=== PATIENT | male | born 1965 | race Caucasian/White ===

== ENCOUNTER 2020-06-06 03:03 | Inpatient (IN) ==
[2020-06-06] MEDS ORDERED: HYDROmorphone INJ 0.5 MG/0.5 ML SYR IV STA ×2 (03:38→06:32)
[2020-06-06] MEDS ORDERED: ONDANSETRON INJ 2 MG/ML 2 ML VIAL IV STA ×2 (03:38→05:21)
[2020-06-06 03:45] LABS: Basophils # (auto) 0.01 K/uL (0-0.2); Basophils % (auto) 0.1 %; Eosinophils # (auto) 0.06 K/uL (0-0.5); Eosinophils % (auto) 0.7 %; Hemoglobin 14.9 g/dL (14.0-18.0); Immature Granulocytes # (auto) 0.01 K/uL (0.00-0.02); Immature Granulocytes % (auto) 0.1 %; Lymphocytes # (auto) 2.31 K/uL (1.2-3.4); Lymphocytes % (auto) 28.1 %; Mean Corpuscular Hemoglobin 31.6 pg (25-34); Mean Corpuscular Hgb Conc 35.5 g/dL (32-36); Mean Corpuscular Volume 89.2 fL (80-100); Mean Platelet Volume 10.3 fL (7.4-10.4); Monocytes # (auto) 0.87 K/uL (0.11-0.59); Monocytes % (auto) 10.6 %; Neutrophils # (auto) 4.95 K/uL (1.4-6.5); Neutrophils % (auto) 60.4 %; Platelet Count 204 K/uL (130-400); RDW Coefficient of Variation 12.1 % (11.5-14.5); RDW Standard Deviation 39.2 fL (36.4-46.3); Red Blood Count 4.71 M/uL (4.7-6.1); White Blood Count 8.21 K/uL (4.8-10.8)
[2020-06-06] MEDS ORDERED: SODIUM CHLORIDE 0.9% 1000ML 1,000 ML IV SCH (03:45)
[2020-06-06] MEDS ORDERED: HYDROmorphone INJ 1 MG/ML SYRINGE IV STA ×2 (04:02→05:21)
[2020-06-06 04:13] LABS: Albumin Globulin Ratio 0.9 (0.9-2); Albumin Level 3.5 gm/dl (3.4-5.0); BUN Creatinine Ratio 16.2 (10-20); Bilirubin,Total 0.7 mg/dl (0.2-1); Calcium 8.3 mg/dl (8.5-10.1); Creatinine Clr Calc Pharmacy 115.9 ml/min; Est GFR (African American) 102.7; Est GFR (Non-African American) 88.6; Total Protein 7.5 gm/dl (6.4-8.2)
[2020-06-06] MEDS ORDERED: PROMETHAZINE 12.5 MG/50.5 ML BAG IV STA (05:45)
[2020-06-06] MEDS: SODIUM CHLORIDE 0.9% 1000ML 1,000 ML IV SCH ×3 (05:53→18:24)
--- NOTE | 2020-06-06 06:19 | History & Physical Report ---
Date of Service June 06, 2020 Assessment & Plan (1) Right nephrolithiasis: Chris is a 55-year-old male with a past medical history of glaucoma and no other chronic medical conditions who presents with severe episodic right lower back pain with associated nausea and he was found to have nephrolithiasis on CT scan. Right nephrolithiasis CT abdomen/pelvis demonstrates right stone in renal pelvis of 11 mm and additional right upper pole stone measuring 5 mm with peripelvic stranding. Note stat rad report erroneously states left-sided stone, confirmed on independent image review that stones are right-sided. Patient without symptoms of dysuria preceding symptoms UA pending Empiric coverage with Rocephin 2 g Flomax 0.4 mg Hydromorphone 0.5-1 mg every 3 hours scaled analgesia Tylenol 650 mg every 4 hours as needed Deferred Toradol due to admission recommendation Continue Zofran every 4 hours for nausea, adjunct Phenergan as needed Urology consulted Hemodynamically stable Received 2 L fluid in ED, continue saline 125 cc/h Glaucoma Continue home dorzolamidetimolol, latanoprost ophthalmic drops No other chronic medical conditions. Patient has had past hypertension which resolved following weight loss, if he has stones which show calcium composition would likely benefit from a thiazide. DVT prophylaxis: SCDs, deferred pharmacal prophylaxis centrally periprocedure Diet: N.p.o. Disposition: Medical/surgical CODE STATUS: Full code History of Present Illness Chief Complaint: Right flank pain, back pain Primary Care Provider: Shane lakhani DO Niranjan is a 55-year-old male with a past medical history of glaucoma and no other chronic medical problems who presents with episodic back pain. Chris reports that his symptoms began 2 to 3 days ago with episodic right lower back pain which improved with Tylenol every 4 hours. He reports he was relatively pain-free yesterday until midnight last night when he developed severe 10/10 episodic achy right lower back pain with waves of pain around his flank and abdomen. Movement worsens his pain, does not note remitting factors. He does not have fevers or chills, but notes he has sweating episodes with his pain. He has been retching and had one episode of nonbloody nonbilious vomiting due to pain. He notes the last time he peed at 1:00 he is not sure if there was blood because it was dark, but he did not have any burning or pain and has not noticed any urinary changes. He denies chest pain, chest pressure, shortness of breath. He had Covid several weeks ago, as did his family, they all recovered without complication. He has not had recent fevers or cough. He does not have any personal or family history of kidney stone. He had a past history of hypertension which resolved with weight loss a year ago. Medical history: Reviewed Surgical history: Reviewed Medications: Reviewed Social: Denies tobacco, alcohol, and recreational drug use. He lives at home with his and daughter. No recent sick contacts. Had Covid several weeks ago. CODE STATUS: Full code Family history: Noncontributory, no history of kidney stones Home Medications Home Medications Medication Instructions Recorded Confirmed Type dorzolamide-timolol 1 drp OPB BID 06/06/20 06/06/20 History latanoprost 1 drp OPB HS 06/06/20 06/06/20 History Past Med/Surg History Social History Smoking Status: Never smoker Feels Safe at Home: Yes Review of Systems Review of Systems: All systems reviewed & are unremarkable except as noted in HPI & below Physical Exam Physical Exam: General: A&Ox3. Appears in pain. HEENT: Atraumatic, normocephalic. Pupils equal and reactive to light and accommodation. Visual acuity grossly intact. Hearing grossly intact. Mucous membranes moist. Pulm: CTAB A&P. -wheezes, -rales, -rhonchi. Symmetrical chest rise. No increase work of breathing. No respiratory distress. Cardiac: RRR, -mrg. Radial pulses intact and symmetrical. Abdominal: Nontender, nondistended, soft. No rebound tenderness. BS present. Right CVA tenderness is present. Patient endorses right abdomen as area where his pain radiates when he has a spasm. Extremities: Moving all extremities equally, sensation in fingers and toes grossly intact and symmetrical. No leg swelling. Results & Data Results & Data ([facility]) Vital Signs (Past 12 Hours) Vital Signs Temp Pulse Pulse Resp BP BP Pulse Ox 06/06/20 05:27 96 06/06/20 05:26 89 L 06/06/20 05:18 59 L 12 138/101 H 92 06/06/20 04:30 67 17 117/71 94 06/06/20 03:19 36.5 C 69 20 138/74 97 Supervising Physician Co-Signing Physician Notes Patient seen and examined, chart reviewed, case discussed with Dr. Santoyo and I agree with his assessment and plan as documented above. Briefly, patient iis a 55yo male presenting with large right sided nephrolithiasis, perinephric stranding. On exam patient is afebrile, HD stable, +distress secondary to pain and nausea Skin - no rash HEENT - NC/AT, PERRL, EOMI, MMM, Neck supple Heart - +S1/S2, regular, no m/r/g Lungs - CTA Abd - +BS, soft, NT/ND Labs and images reviewed Assessment/Plan: -admit to medical -pain and nausea control -IVF + Flomax -Urology consultation appreciated -Remainder of plan as above Resident Activity Tracking Resident Involvement: Resident Care Provided Care Provided: Adult Hospital Medicine
[2020-06-06] MEDS ORDERED: KETOROLAC TROMETHAMINE 15 MG/ML VIAL IV ONE (06:20)
[2020-06-06] MEDS ORDERED: ACETAMINOPHEN 325 MG TAB PO PRN ×2 (07:34)
[2020-06-06] MEDS ORDERED: HYDROmorphone INJ 1 MG/ML SYRINGE IV PRN (07:34)
[2020-06-06] MEDS ORDERED: HYDROmorphone INJ 0.5 MG/0.5 ML SYR IV PRN (07:34)
[2020-06-06] MEDS ORDERED: TAMSULOSIN HCL 0.4 MG CAP PO ONE (07:34)
[2020-06-06] MEDS ORDERED: ONDANSETRON INJ 2 MG/ML 2 ML VIAL IV PRN (07:34)
[2020-06-06] MEDS ORDERED: KETOROLAC TROMETHAMINE 15 MG/ML VIAL IV PRN (07:52)
--- NOTE | 2020-06-06 07:56 | Hospitalist Progress Note ---
Date of Service June 06, 2020 Assessment & Plan (1) Right nephrolithiasis: Chris is a 55-year-old male with a past medical history of glaucoma and no other chronic medical conditions who presents with severe episodic right lower back pain with associated nausea and he was found to have nephrolithiasis on CT scan. Right nephrolithiasis CT abdomen/pelvis demonstrates right stone in renal pelvis of 11 mm with pelvic fullness (may be intermittently obstructing) and additional right upper pole stone measuring 5 mm with peripelvic stranding. Patient without symptoms of dysuria preceding symptoms UA pending Empiric coverage with Rocephin 2 g Flomax 0.4 mg Hydromorphone 0.5-1 mg every 3 hours scaled analgesia Tylenol 650 mg every 4 hours as needed Deferred Toradol due to admission recommendation Continue Zofran every 4 hours for nausea, adjunct Phenergan as needed Urology consulted Hemodynamically stable Received 2 L fluid in ED, continue saline 125 cc/h Glaucoma Continue home dorzolamidetimolol, latanoprost ophthalmic drops No other chronic medical conditions. Patient has had past hypertension which resolved following weight loss, if he has stones which show calcium composition would likely benefit from a thiazide. DVT prophylaxis: SCDs, deferred pharmacal prophylaxis centrally periprocedure Diet: N.p.o. Disposition: Medical/surgical CODE STATUS: Full code Admission and Anticipated Discharge Date Admission Date: June 06, 2020 Subjective 55 yo M with hx glaucoma admitted for acute nausea and back pain secondary to nephrolithiasis identified on CT A/P. This morning says pain has improved but continues to be unpredictable. Doesn't know when it will start or stop. Doesn't know of anything that makes it better or worse. Denies any symptoms of dysuria prior to admission. Notes that he did have urinary frequency prior to admission. No personal or family hx of kidney stones. Review of Systems Constitutional: no fever and no chills Respiratory: no cough Cardiovascular: no chest pain Gastrointestinal: + nausea; no vomiting Genitourinary: + urinary frequency and + flank pain; no dysuria and no hematuria Musculoskeletal: + back pain Physical Exam Physical Exam: Constitutional: middle aged male in no apparent distress, sitting comfortably in bed. Eyes: EOMI, pupils equal and reactive bilaterally, no scleral icterus Cardiac: RRR, no murmurs, gallops or rubs. Normal S1, S2 Pulm: CTA BL, no wheezes, rhonchi, crackles or rubs, moving air well throughout both lungs Abd: soft, nontender, distended, normal bowel sounds, no rebound or guarding Back: no CVA tenderness Extremities: 2+ peripheral pulses, no edema Neuro: no focal deficits, moving all 4 limbs, A&Ox3 Results & Data Results & Data ([facility]) Vital Signs (Past 12 Hours) Vital Signs Temp Pulse Pulse Pulse Resp BP BP 06/06/20 07:38 36.4 C L 67 18 150/100 H 06/06/20 07:00 36.5 C 76 16 146/83 H 06/06/20 06:40 61 15 152/109 H 06/06/20 06:01 93 H 19 147/91 H 06/06/20 05:27 06/06/20 05:26 06/06/20 05:18 59 L 12 138/101 H 06/06/20 04:30 67 17 117/71 06/06/20 03:19 36.5 C 69 20 138/74 Pulse Ox 06/06/20 07:38 93 06/06/20 07:00 93 06/06/20 06:40 94 06/06/20 06:01 95 06/06/20 05:27 96 06/06/20 05:26 89 L 06/06/20 05:18 92 06/06/20 04:30 94 06/06/20 03:19 97 Laboratory Results WBC 8.21 K/uL (4.8-10.8) 06/06/20 03:35 RBC 4.71 M/uL (4.7-6.1) 06/06/20 03:35 Hgb 14.9 g/dL (14.0-18.0) 06/06/20 03:35 Hct 42.0 % (42-52) 06/06/20 03:35 MCV 89.2 fL (80-100) 06/06/20 03:35 MCH 31.6 pg (25-34) 06/06/20 03:35 MCHC 35.5 g/dL (32-36) 06/06/20 03:35 RDW Std Deviation 39.2 fL (36.4-46.3) 06/06/20 03:35 RDW Coeff of Kathy 12.1 % (11.5-14.5) 06/06/20 03:35 Plt Count 204 K/uL (130-400) 06/06/20 03:35 MPV 10.3 fL (7.4-10.4) 06/06/20 03:35 Immature Gran % (Auto) 0.1 % 06/06/20 03:35 Neut % (Auto) 60.4 % 06/06/20 03:35 Lymph % (Auto) 28.1 % 06/06/20 03:35 Freestone % (Auto) 10.6 % 06/06/20 03:35 Eos % (Auto) 0.7 % 06/06/20 03:35 Baso % (Auto) 0.1 % 06/06/20 03:35 Neut # (Auto) 4.95 K/uL (1.4-6.5) 06/06/20 03:35 Lymph # (Auto) 2.31 K/uL (1.2-3.4) 06/06/20 03:35 Freestone # (Auto) 0.87 K/uL (0.11-0.59) H 06/06/20 03:35 Eos # (Auto) 0.06 K/uL (0-0.5) 06/06/20 03:35 Baso # (Auto) 0.01 K/uL (0-0.2) 06/06/20 03:35 Immature Gran # (Auto) 0.01 K/uL (0.00-0.02) 06/06/20 03:35 Sodium 139 mmol/L (136-145) 06/06/20 03:35 Potassium mmol/L (3.5-5.1) 06/06/20 03:35 Chloride 111 mmol/L (98-107) H 06/06/20 03:35 Carbon Dioxide 24 mmol/L (21-32) 06/06/20 03:35 Anion Gap 4.0 (3-11) 06/06/20 03:35 BUN 16 mg/dl (7-18) 06/06/20 03:35 Creatinine 0.96 mg/dl (0.6-1.4) 06/06/20 03:35 Est Cr Clr Drug Dosing 115.9 ml/min 06/06/20 03:35 Est GFR ( Amer) 102.7 06/06/20 03:35 Est GFR (Non-Af Amer) 88.6 06/06/20 03:35 BUN/Creatinine Ratio 16.2 (10-20) 06/06/20 03:35 Glucose 148 mg/dl (70-99) H 06/06/20 03:35 Calcium 8.3 mg/dl (8.5-10.1) L 06/06/20 03:35 Total Bilirubin 0.7 mg/dl (0.2-1) 06/06/20 03:35 AST U/L (15-37) 06/06/20 03:35 ALT 34 U/L (12-78) 06/06/20 03:35 Alkaline Phosphatase 75 U/L (45-117) 06/06/20 03:35 Total Protein 7.5 gm/dl (6.4-8.2) 06/06/20 03:35 Albumin 3.5 gm/dl (3.4-5.0) 06/06/20 03:35 Globulin 4.0 gm/dl (2.5-4.0) 06/06/20 03:35 Albumin/Globulin Ratio 0.9 (0.9-2) 06/06/20 03:35 Lipase 121 U/L (73-393) 06/06/20 03:35 COVID-19 Eval Order Covid19 Done at [facility] 06/06/20 09:28
--- NOTE | 2020-06-06 08:07 | CT Scan Report ---
CT SCAN OF THE ABDOMEN AND PELVIS WITHOUT IV CONTRAST CLINICAL HISTORY: Right flank pain. COMPARISON STUDY: No priors. TECHNIQUE: CT scan of the abdomen and pelvis is performed from the lung bases to the proximal femora. Images are reviewed in the axial, sagittal, and coronal planes. IV contrast was not administered for this examination. A dose lowering technique was utilized adhering to the principles of ALARA. CT DOSE: 1712.83 mGy.cm FINDINGS: Lung bases: The heart is normal in size and without pericardial effusion. The lung bases are clear no ting bibasilar scarring/atelectasis. There is a small hiatal hernia. Liver: The unenhanced liver is normal in size, contour, and attenuation. There is no intrahepatic mirna iary ductal dilatation. Gallbladder: Unremarkable. Spleen: Normal in size and attenuation. Pancreas: Unremarkable. Adrenal glands: Unremarkable. Kidneys: The unenhanced kidneys are normal in size. There is a 10 mm calculus in the right renal pelv is seen on image #210. There is mild fullness of the right renal collecting system and right-sided pe rinephric stranding. This calculus may be intermittently obstructing. An additional 5 mm nonobstructi ng calculus is seen in the right upper pole. A 3 mm nonobstructing calculus is seen in the left kidne y. There is no left-sided hydronephrosis. No ureteral stone is seen. There is no evidence of contour deforming renal mass lesion. Abdominal vasculature: The abdominal aorta is normal in course and caliber. Bowel: There is mild to moderate colonic fecal retention. No bowel obstruction is seen. The appendix is well-visualized and normal. Peritoneum: There is no intraperitoneal free air or abdominal ascites. There is a fat-containing umbi lical hernia. Lymphadenopathy: None. Pelvic viscera: The bladder, prostate, and seminal vesicles are normal as visualized. There is eviden ce of previous right inguinal herniorrhaphy. Skeletal structures: No lytic or blastic lesions are seen. There are bilateral pars defects at L5 wit h moderate disc space narrowing and mild anterolisthesis at L5-S1. IMPRESSION: 1. There is a 10 mm calculus identified in the right renal pelvis with mild fullness of the right socorro al collecting system and right-sided perinephric inflammation. This calculus may be intermittently ob structing. Correlate clinically and with urinalysis for evidence of superimposed urinary tract infect ion. 2. Additional nonobstructing calculi are seen bilaterally. 3. Additional findings as above. ACT 112: Negative or not required by law. Electronically signed by: Luis Carlos Kinney M.D. 06/06/2020 8:05 AM
--- NOTE | 2020-06-06 08:45 | Emergency Department Note ---
History of Present Illness General Chief complaint: Kidney Stone Stated complaint: KIDNEY STONE Time Seen by Provider: 06/06/20 03:27 Source: patient and RN notes reviewed Mode of arrival: ambulatory Limitations: no limitations History of Present Illness Provider complaint: Right flank pain Maximum Pain Intensity: 10 This patient is a 55-year-old male who presents emergency department with complaints of right flank pain and nausea. The patient states this was fairly sudden onset while sleeping tonight. He did have an episode of similar pain several days ago that resolved after taking [id number] medications. Patient denies any anything unusual, greasy or spicy this evening. He admits to nausea but denies any vomiting. He denies any fevers or difficulty with a bowel movement. He denies any blood in the urine. Patient denies any history of kidney stones. He denies any history of surgery on the abdomen with the exception of an inguinal hernia repair years ago. Home Medications Home Medications Medication Instructions Recorded Confirmed Type dorzolamide-timolol 1 drp OPB BID 06/06/20 06/06/20 History latanoprost 1 drp OPB HS 06/06/20 06/06/20 History Allergies Allergy/AdvReac Type Severity Reaction Status Date / Time seasonal AdvReac Rash Uncoded 06/06/20 07:58 Past Med/Surg History Medical History COVID-19 Glaucoma Social History Smoking Status: Never smoker Second Hand Exposure: No; Do You Dip or Chew Tobacco: No; Tobacco Cessation Education Requested by Patient: No Hx Alcohol Use: No Hx Substance Use: No Preferred Language: Malaysian Communication Ability: Effective Director Public Service Required: No Beliefs That Will Affect Care: None Current Living Situation: Spouse and Family Other Information That Helps Us Care for You: No Feels Safe at Home: Yes Safety Concerns: Feels Safe At This Time Assistive Devices: None Review of Systems See HPI for pertinent positives & negatives. and A total of 10 systems reviewed and were otherwise negative Physical Exam Vital Signs Vital Signs - 24 hr 06/06/20 03:19 06/06/20 03:30 06/06/20 04:30 Temperature 36.5 C Temperature Source Oral Pulse Rate 69 Pulse Rate [Apical] 67 Respiratory Rate 20 17 Blood Pressure 138/74 Blood Pressure [Right Arm] 117/71 Blood Pressure Mean 95 Blood Pressure Mean [Right Arm] 86 Blood Pressure Position Sitting Pulse Oximetry 97 94 Oxygen Delivery Method Room Air Room Air Oxygen Flow Rate Sepsis Recent Fever Within 48 Hours No Sepsis New/Unexplained Change in Mental Status No Sepsis Action Taken by Nursing No Action Required 06/06/20 05:18 06/06/20 05:26 06/06/20 05:27 Temperature Temperature Source Pulse Rate Pulse Rate [Apical] 59 L Respiratory Rate 12 Blood Pressure Blood Pressure [Right Arm] 138/101 H Blood Pressure Mean Blood Pressure Mean [Right Arm] 113 Blood Pressure Position Pulse Oximetry 92 89 L 96 Oxygen Delivery Method Room Air Room Air Nasal Cannula Oxygen Flow Rate 2 Sepsis Recent Fever Within 48 Hours Sepsis New/Unexplained Change in Mental Status Sepsis Action Taken by Nursing 06/06/20 06:01 Temperature Temperature Source Pulse Rate Pulse Rate [Apical] 93 H Respiratory Rate 19 Blood Pressure Blood Pressure [Right Arm] 147/91 H Blood Pressure Mean Blood Pressure Mean [Right Arm] 109 Blood Pressure Position Pulse Oximetry 95 Oxygen Delivery Method Nasal Cannula Oxygen Flow Rate 2 Sepsis Recent Fever Within 48 Hours Sepsis New/Unexplained Change in Mental Status Sepsis Action Taken by Nursing Vital signs reviewed. General: Well-appearing 55-year-old male, in significant discomfort HEENT: No scleral icterus, PERRLA, neck supple. Atraumatic. Cardiovascular: Regular rate and rhythm, no extra sounds. Pulmonary: Clear to auscultation bilaterally, normal work of breathing. Abdomen: Soft, mild right upper quadrant tenderness, no rebound, no guarding, nondistended, positive bowel sounds. Musculoskeletal: Atraumatic, no peripheral edema. No CVA tenderness. Neurologic: Patient awake alert and oriented x 3 Skin: Warm, dry, no rash Course Administered Medications Acetaminophen (Acetaminophen 500 Mg Tab) 1,000 mg PO Q8H JACOBO Stop: 07/06/20 08:29 Last Admin: 06/07/20 08:40 Dose: 1,000 mg Documented by: [id number] Admin: 06/07/20 00:38 Dose: 1,000 mg Documented by: [id number] Admin: 06/06/20 16:46 Dose: 1,000 mg Documented by: [id number] Admin: 06/06/20 10:06 Dose: 1,000 mg Documented by: [id number] Dorzolamide/Timolol (Dorzolamide/Timolol 22.3/6.8mg/Ml 10 Ml Btl) 1 drops OPB BID JACOBO Stop: 07/06/20 08:59 Last Admin: 06/07/20 08:41 Dose: 1 drops Documented by: [id number] Admin: 06/06/20 22:18 Dose: 1 drops Documented by: [id number] Admin: 06/06/20 10:07 Dose: 1 drops Documented by: [id number] Ceftriaxone Sodium 2,000 mg/ (Dextrose) 50 mls @ 100 mls/hr IV Q24H JACOBO; Protocol Stop: 06/08/20 08:29 Last Infusion: 06/07/20 09:18 Dose: 0 mls/hr Documented by: [id number] Admin: 06/07/20 08:37 Dose: 100 mls/hr Documented by: [id number] Infusion: 06/06/20 10:41 Dose: 0 mls/hr Documented by: [id number] Admin: 06/06/20 10:09 Dose: 100 mls/hr Documented by: [id number] Latanoprost (Latanoprost 0.005% Op Soln 2.5 Ml Btl) 1 drops OPB HS JACOBO Stop: 07/06/20 20:59 Last Admin: 06/06/20 22:18 Dose: 1 drops Documented by: [id number] Tamsulosin HCl (Tamsulosin Hcl 0.4 Mg Cap) 0.4 mg PO QAM JACOBO Stop: 07/07/20 08:59 Last Admin: 06/07/20 09:19 Dose: 0.4 mg Documented by: [id number] Discontinued Medications Hydromorphone HCl (Hydromorphone Inj 0.5 Mg/0.5 Ml Syr) 0.5 mg IV NOW STA Stop: 06/06/20 03:39 Last Admin: 06/06/20 03:45 Dose: 0.5 mg Documented by: [id number] Hydromorphone HCl (Hydromorphone Inj 1 Mg/Ml Syringe) 1 mg IV NOW STA Stop: 06/06/20 04:03 Last Admin: 06/06/20 04:08 Dose: 1 mg Documented by: [id number] Hydromorphone HCl (Hydromorphone Inj 1 Mg/Ml Syringe) 1 mg IV NOW STA Stop: 06/06/20 05:22 Last Admin: 06/06/20 05:23 Dose: 1 mg Documented by: [id number] Hydromorphone HCl (Hydromorphone Inj 0.5 Mg/0.5 Ml Syr) 0.5 mg IV NOW STA Stop: 06/06/20 06:33 Last Admin: 06/06/20 06:34 Dose: 0.5 mg Documented by: [id number] Sodium Chloride (Nss 1000ml) 1,000 mls @ 999 mls/hr IV .Q1H1M JACOBO Stop: 06/06/20 04:45 Last Infusion: 06/06/20 04:47 Dose: 0 mls/hr Documented by: [id number] Admin: 06/06/20 03:46 Dose: 999 mls/hr Documented by: [id number] Promethazine HCl (Phenergan) 12.5 mg in 50.5 mls @ 202 mls/hr IV NOW STA Stop: 06/06/20 05:59 Last Infusion: 06/06/20 06:11 Dose: 0 mls/hr Documented by: [id number] Admin: 06/06/20 05:53 Dose: 202 mls/hr Documented by: [id number] Sodium Chloride (Nss 1000ml) 1,000 mls @ 125 mls/hr IV .Q8H JACOBO Stop: 07/06/20 05:59 Last Infusion: 06/07/20 08:46 Dose: 0 mls/hr Documented by: [id number] Infusion: 06/07/20 06:26 Dose: 125 mls/hr Documented by: [id number] Admin: 06/07/20 01:55 Dose: 125 mls/hr Documented by: [id number] Infusion: 06/07/20 01:55 Dose: 125 mls/hr Documented by: [id number] Infusion: 06/06/20 22:18 Dose: 125 mls/hr Documented by: [id number] Admin: 06/06/20 18:24 Dose: 125 mls/hr Documented by: [id number] Infusion: 06/06/20 18:09 Dose: 125 mls/hr Documented by: [id number] Admin: 06/06/20 10:09 Dose: 125 mls/hr Documented by: [id number] Infusion: 06/06/20 10:05 Dose: 0 mls/hr Documented by: [id number] Admin: 06/06/20 05:53 Dose: 125 mls/hr Documented by: [id number] Ketorolac Tromethamine (Ketorolac Tromethamine 15 Mg/Ml Vial) 15 mg IV NOW ONE Stop: 06/06/20 06:21 Last Admin: 06/06/20 08:07 Dose: 15 mg Documented by: [id number] Ondansetron HCl (Ondansetron Inj 2 Mg/Ml 2 Ml Vial) 4 mg IV NOW STA Stop: 06/06/20 03:39 Last Admin: 06/06/20 03:45 Dose: 4 mg Documented by: [id number] Ondansetron HCl (Ondansetron Inj 2 Mg/Ml 2 Ml Vial) 4 mg IV NOW STA Stop: 06/06/20 05:22 Last Admin: 06/06/20 05:23 Dose: 4 mg Documented by: [id number] Tamsulosin HCl (Tamsulosin Hcl 0.4 Mg Cap) 0.4 mg PO NOW ONE Stop: 06/06/20 07:35 Last Admin: 06/06/20 10:06 Dose: 0.4 mg Documented by: [id number] Medical Decision Making Differential Diagnosis Renal colic, UTI, appendicitis, diverticulitis, mesenteric ischemia, aortic pathology, infections, inflammatory bowel disease, PUD, biliary pathology, as well as other pathologies. Medical Records Attestation: I reviewed the patient's medical records. Home Medications Current Medication List: was personally reviewed by me Laboratory Data Attestation: I reviewed the patient's lab results. Result diagrams: 06/07/20 04:37 06/07/20 04:37 Lab Results 06/06/20 06/06/20 Range/Units 03:35 03:35 WBC 8.21 (4.8-10.8) K/uL RBC 4.71 (4.7-6.1) M/uL Hgb 14.9 (14.0-18.0) g/dL Hct 42.0 (42-52) % MCV 89.2 (80-100) fL MCH 31.6 (25-34) pg MCHC 35.5 (32-36) g/dL RDW Std Deviation 39.2 (36.4-46.3) fL RDW Coeff of Kathy 12.1 (11.5-14.5) % Plt Count 204 (130-400) K/uL MPV 10.3 (7.4-10.4) fL Immature Gran % (Auto) 0.1 % Neut % (Auto) 60.4 % Lymph % (Auto) 28.1 % Waller % (Auto) 10.6 % Eos % (Auto) 0.7 % Baso % (Auto) 0.1 % Neut # (Auto) 4.95 (1.4-6.5) K/uL Lymph # (Auto) 2.31 (1.2-3.4) K/uL Waller # (Auto) 0.87 H (0.11-0.59) K/uL Eos # (Auto) 0.06 (0-0.5) K/uL Baso # (Auto) 0.01 (0-0.2) K/uL Immature Gran # (Auto) 0.01 (0.00-0.02) K/uL Sodium 139 (136-145) mmol/L Potassium (3.5-5.1) mmol/L Chloride 111 H (98-107) mmol/L Carbon Dioxide 24 (21-32) mmol/L Anion Gap 4.0 (3-11) BUN 16 (7-18) mg/dl Creatinine 0.96 (0.6-1.4) mg/dl Est Cr Clr Drug Dosing 115.9 ml/min Est GFR ( Amer) 102.7 Est GFR (Non-Af Amer) 88.6 BUN/Creatinine Ratio 16.2 (10-20) Glucose 148 H (70-99) mg/dl Calcium 8.3 L (8.5-10.1) mg/dl Total Bilirubin 0.7 (0.2-1) mg/dl AST (15-37) U/L ALT 34 (12-78) U/L Alkaline Phosphatase 75 (45-117) U/L Total Protein 7.5 (6.4-8.2) gm/dl Albumin 3.5 (3.4-5.0) gm/dl Globulin 4.0 (2.5-4.0) gm/dl Albumin/Globulin Ratio 0.9 (0.9-2) Lipase 121 (73-393) U/L Imaging Data Radiologist's Impression: CT SCAN OF THE ABDOMEN AND PELVIS WITHOUT IV CONTRAST CLINICAL HISTORY: Right flank pain. COMPARISON STUDY: No priors. TECHNIQUE: CT scan of the abdomen and pelvis is performed from the lung bases to the proximal femora. Images are reviewed in the axial, sagittal, and coronal planes. IV contrast was not administered for this examination. A dose lowering technique was utilized adhering to the principles of ALARA. CT DOSE: 1712.83 mGy.cm FINDINGS: Lung bases: The heart is normal in size and without pericardial effusion. The lung bases are clear noting bibasilar scarring/atelectasis. There is a small hiatal hernia. Liver: The unenhanced liver is normal in size, contour, and attenuation. There is no intrahepatic biliary ductal dilatation. Gallbladder: Unremarkable. Spleen: Normal in size and attenuation. Pancreas: Unremarkable. Adrenal glands: Unremarkable. Kidneys: The unenhanced kidneys are normal in size. There is a 10 mm calculus in the right renal pelvis seen on image #210. There is mild fullness of the right renal collecting system and right-sided perinephric stranding. This calculus may be intermittently obstructing. An additional 5 mm nonobstructing calculus is s een in the right upper pole. A 3 mm nonobstructing calculus is seen in the left kidney. There is no left-sided hydronephrosis. No ureteral stone is seen. There is no evidence of contour deforming renal mass lesion. Abdominal vasculature: The abdominal aorta is normal in course and caliber. Bowel: There is mild to moderate colonic fecal retention. No bowel obstruction is seen. The appendix is well-visualized and normal. Peritoneum: There is no intraperitoneal free air or abdominal ascites. There is a fat-containing umbilical hernia. Lymphadenopathy: None. Pelvic viscera: The bladder, prostate, and seminal vesicles are normal as visualized. There is evidence of previous right inguinal herniorrhaphy. Skeletal structures: No lytic or blastic lesions are seen. There are bilateral pars defects at L5 with moderate disc space narrowing and mild anterolisthesis at L5-S1. IMPRESSION: 1. There is a 10 mm calculus identified in the right renal pelvis with mild fullness of the right renal collecting system and right-sided perinephric inflammation. This calculus may be intermittently obstructing. Correlate clinically and with urinalysis for evidence of superimposed urinary tract infect ion. 2. Additional nonobstructing calculi are seen bilaterally. 3. Additional findings as above. ACT 112: Negative or not required by law. Electronically signed by: Luis Carlos Kinney M.D. 06/06/2020 8:05 AM Dictated: 06/06/20 0759 Transcribed: 06/06/20758 ECG Data Attestation: I personally reviewed and interpreted this ECG as follows: Indication: + abdominal pain Rate (beats per minute): 62 Rhythm: + normal sinus ECG Intervals/blocks: + Normal QT-c ECG Warner: + Normal ECG ST segments: + Normal ST segments ECG Findings: no PACs and no PVCs Blood Pressure Blood Pressure Findings: Elevated blood pressure Blood Pressure Disposition: elevated BP felt to be situational MDM Narrative This pt was evaluated and appears to be in significant discomfort. IV access was obtained and lab work was drawn. An order for cardiac monitoring was placed and the pt was noted to be in a NSR at 69 bpm. Pt was hydrated with NSS. He was medicated with IV dilaudid, zofran for pain. He required several doses of dilaudid for increased pain and zofran for nausea. Pt was then given IV phenergan for nausea. IVF were continued. Pt was unable to urinate. CT imaginf reveals a 11 mm and 5 mm stone in R renal pelvis. [place] [facility] [place] who will evaluate for further management. Pt is aware and agrees. Impression & Plan Right nephrolithiasis, Colic, ureteral Discharge Plan Visit Data Chief Complaint: Kidney Stone Stated Complaint: KIDNEY STONE ED Provider: Marianne Hancock Discharge Problem: Right nephrolithiasis, Colic, ureteral Patient Disposition: Admitted As Inpatient Discharge Instructions Interventions: ED Discharge Assessment Last Done: 06/06/20 06:40
--- NOTE | 2020-06-06 09:33 | Urology Consultation ---
Date of Consultation June 06, 2020 Assessment & Plan (1) Right nephrolithiasis: 55 yo M admitted for right flank pain secondary to 11 mm calculus in right renal pelvis. - Afebrile, nontoxic, creatinine and WBC WNL - Stone in right renal pelvis likely intermittently obstructing - Discussed treatment options with patient and his . Patient would like to proceed with stent placement today. - Keep NPO - Strain urine - Findings reviewed with Dr. Pineda. Given his right flank pain in the context of an obstructing 11 mm right renal stone, will proceed with OR for cystoscopy and Right stent placement. Risks and benefits to be reviewed with patient by Dr. Pineda. OR notified. Preoperative EKG on chart. COVID testing completed. Will cover with IV Ceftriaxone preoperatively. Update - COVID test returned positive. Will cancel surgery today until further evaluation. Patient is stable and no emergent need for intervention today. Continue with symptom control. Please consult our service urgently if patient develops fever >101F, intractable pain or nausea, as this may necessitate urgent surgical intervention. Thank you for the consultation and we will continue to monitor closely with primary service. History of Present Illness Reason for Consultation: Right renal calculus Attending Physician: Riogberto Salvador MD History of Present Illness 55 yo M admitted for right flank pain secondary to 11 mm right renal stone. PMHx of glaucoma and hypertension. Patient presented to [facility] on 06/06/2020 with right flank pain and nausea. Lab work on admission showed no leukocytosis, creatinine 0.96. UA and urine culture not collected on admission. CT A/P demonstrated a 10 mm calculus in the right renal pelvis with mild fullness of the right renal collecting system and right- sided perinephric inflammation. Additional nonobstructing calculi are seen bilaterally. He was treated with IV fluids and Rocephin in the ED. He was admitted for pain management and further evaluation. Patient seen and examined at bedside. present at bedside. Pt is feeling some improvement since admission. Continues to have right flank/back pain, relief with pain medication. Mild nausea, no recent vomiting. No fever or chills. No dysuria or hematuria. Voiding without difficulty. He wishes to pursue intervention today. Chart review: no additional lab work since admission. UA collected - 5-10 WBCs, 10-30 RBCs, 20-30 Epithelials, negative bacteria and negative nitrites. No urine culture pending. This is his first stone. No known family history of stones. No additional concerns today. Allergies Allergy/AdvReac Type Severity Reaction Status Date / Time seasonal AdvReac Rash Uncoded 06/06/20 07:58 Home Medications Home Medications Medication Instructions Recorded Confirmed Type dorzolamide-timolol 1 drp OPB BID 06/06/20 06/06/20 History latanoprost 1 drp OPB HS 06/06/20 06/06/20 History Patient History Medical History COVID-19 Glaucoma Social History Smoking Status: Never smoker Second Hand Exposure: No; Do You Dip or Chew Tobacco: No; Tobacco Cessation Education Requested by Patient: No Hx Alcohol Use: No Hx Substance Use: No Preferred Language: Burmese Communication Ability: Effective Rn Pool Required: No Beliefs That Will Affect Care: None Current Living Situation: Spouse and Family Other Information That Helps Us Care for You: No Feels Safe at Home: Yes Safety Concerns: Feels Safe At This Time Assistive Devices: Glasses Review of Systems Constitutional: as per Subjective / HPI Gastrointestinal: as per Subjective / HPI Genitourinary: + as per Subjective / HPI Physical Exam Constitutional: well developed and well nourished; no acute distress and not ill appearing Eyes: no scleral abnormality Respiratory: normal respiratory effort and able to speak in complete sentences; no respiratory distress and no labored breathing Cardiovascular: Extremities: no pedal edema Gastrointestinal (Abdomen): Inspection/Auscultation: abdomen normal to inspection; abdomen not distended Percussion/Palpation: abdomen soft; abdomen nontender and no guarding Musculoskeletal: Head/Neck/Chest: normocephalic and head atraumatic Extremities: extremities normal to inspection Skin: no rashes, warm and dry Neurologic: moves all extremities and awake Psychiatric: Orientation: alert and oriented x 3 Genitourinary: no CVA tenderness Results & Data ([facility]) Vital Signs (Past 12 Hours) Vital Signs Temp Pulse Pulse Pulse Resp BP BP 06/06/20 07:38 36.4 C L 67 18 150/100 H 06/06/20 07:00 36.5 C 76 16 146/83 H 06/06/20 06:40 61 15 152/109 H 06/06/20 06:01 93 H 19 147/91 H 06/06/20 05:27 06/06/20 05:26 06/06/20 05:18 59 L 12 138/101 H 06/06/20 04:30 67 17 117/71 06/06/20 03:19 36.5 C 69 20 138/74 Pulse Ox 06/06/20 07:38 93 06/06/20 07:00 93 06/06/20 06:40 94 06/06/20 06:01 95 06/06/20 05:27 96 06/06/20 05:26 89 L 06/06/20 05:18 92 06/06/20 04:30 94 06/06/20 03:19 97 PG Care Time/CCT Total # of Minutes Spent Total Time Spent with Patient: Total time spent is greater than 50% in coordination of care (as documented) at patient's floor/unit and/or counseling patient: Coding Level of Care Code 03098 Inpt Consult Level 3 Diagnoses Right nephrolithiasis N20.0
[2020-06-06] MEDS: ACETAMINOPHEN 500 MG TAB PO SCH ×2 (10:06→16:46)
[2020-06-06] MEDS: DORZOLAMIDE/TIMOLOL 22.3/6.8MG/ML 10 ML BTL OPB SCH ×2 (10:07→22:18)
[2020-06-06] MEDS: cefTRIAXone SODIUM 2,000 MG in DEXTROSE 5% 50 ML IV SCH (10:09)
[2020-06-06 14:26] LABS: Appearance Urine Clear (Clear); Bacteria Urine Automated Negative (Negative); Bilirubin Urine Negative (Negative); Blood Urine 2+ (Negative); Color Urine Dark Yellow; Epithelial Cell Urine Auto 20-30 /lpf (0-5); Glucose Urine UA Negative (Negative); Ketones Urine Negative (Negative); Leukocyte Esterase Urine Negative (Negative); Nitrite Urine Negative (Negative); Protein Urine Negative (Negative); Specific Gravity Urine 1.025 (1.000-1.030); Urobilinogen Urine Negative (Negative)
--- NOTE | 2020-06-06 14:50 | Hospitalist Progress Note ---
Date of Service June 06, 2020 Assessment & Plan (1) COVID-19: Patient states he was diagnosed May 16 he spent 2 weeks on isolation he was symptomatic his symptoms have resolved. His daughter and are also positive. He believes that his daughter brought Covid into the home she was babysitting for child to eventually proved to have Covid positive. 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 Jan Alberto regarding his and possibly be an OR case on 06/07 appropriate PPE and precautions will be taken (2) Right nephrolithiasis: Chris is a 55-year-old male with a past medical history of glaucoma and no other chronic medical conditions who presents with severe episodic right lowe r back pain with associated nausea and he was found to have nephrolithiasis on CT scan. Right nephrolithiasis CT abdomen/pelvis demonstrates right stone in renal pelvis of 11 mm with pelvic fullness (may be intermittently obstructing) and additional right upper pole stone measuring 5 mm with peripelvic stranding. Patient without symptoms of dysuria preceding symptoms UA pending Empiric coverage with Rocephin 2 g Flomax 0.4 mg Hydromorphone 0.5-1 mg every 3 hours scaled analgesia Tylenol 650 mg every 4 hours as needed Deferred Toradol due to admission recommendation Continue Zofran every 4 hours for nausea, adjunct Phenergan as needed Urology consulted Hemodynamically stable Received 2 L fluid in ED, continue saline 125 cc/h Glaucoma Continue home dorzolamidetimolol, latanoprost ophthalmic drops No other chronic medical conditions. Patient has had past hypertension which resolved following weight loss, if he has stones which show calcium composition would likely benefit from a thiazide. DVT prophylaxis: SCDs, deferred pharmacal prophylaxis centrally periprocedure Diet: N.p.o. Disposition: Medical/surgical CODE STATUS: Full code (3) Glaucoma: Admission and Anticipated Discharge Date Admission Date: June 06, 2020 Subjective pt states his pain was unbearable this morning now it is more controlled Results & Data Results & Data ([facility]) Vital Signs (Past 12 Hours) Vital Signs Temp Pulse Pulse Pulse Resp BP BP 06/06/20 10:13 98.2 F 70 18 134/84 06/06/20 07:38 97.5 F L 67 18 150/100 H 06/06/20 07:00 97.7 F 76 16 146/83 H 06/06/20 06:40 61 15 152/109 H 06/06/20 06:01 93 H 19 147/91 H 06/06/20 05:27 06/06/20 05:26 06/06/20 05:18 59 L 12 138/101 H 06/06/20 04:30 67 17 117/71 06/06/20 03:19 97.7 F 69 20 138/74 Pulse Ox 06/06/20 10:13 95 06/06/20 07:38 93 06/06/20 07:00 93 06/06/20 06:40 94 06/06/20 06:01 95 06/06/20 05:27 96 06/06/20 05:26 89 L 06/06/20 05:18 92 06/06/20 04:30 94 06/06/20 03:19 97 PG Care Time/CCT Total # of Minutes Spent Total Time Spent with Patient: Total time spent is greater than 50% in coordination of care (as documented) at patient's floor/unit and/or counseling patient: Coding Level of Care Code None Diagnoses COVID-19 U07.1 Right nephrolithiasis N20.0 Glaucoma H40.9
--- NOTE | 2020-06-06 16:42 | Electrocardiogram Report ---
Test Reason : Blood Pressure : / mmHG Vent. Rate : 062 BPM Atrial Rate : 062 BPM P-R Int : 150 ms QRS Dur : 098 ms QT Int : 400 ms P-R-T Axes : 046 079 067 degrees QTc Int : 406 ms Normal sinus rhythm Normal ECG No previous ECGs available Confirmed by Gallito Zamarripa ([id number]) on 06/06/2020 4:41:43 PM Referred By: REFERRED SELF Confirmed By:Yadiel Zamarripa
[2020-06-06] MEDS ORDERED: LATANOPROST 0.005% OP SOLN 2.5 ML BTL OPB SCH (21:00)
[2020-06-07] MEDS: ACETAMINOPHEN 500 MG TAB PO SCH ×2 (00:38→08:40)
[2020-06-07] MEDS: SODIUM CHLORIDE 0.9% 1000ML 1,000 ML IV SCH (01:55)
[2020-06-07 05:18] LABS: Basophils # (auto) 0.01 K/uL (0-0.2); Basophils % (auto) 0.1 %; Eosinophils # (auto) 0.05 K/uL (0-0.5); Eosinophils % (auto) 0.7 %; Hematocrit (blood only) 37.7 % (42-52); Hemoglobin 12.7 g/dL (14.0-18.0); Immature Granulocytes # (auto) 0.01 K/uL (0.00-0.02); Immature Granulocytes % (auto) 0.1 %; Lymphocytes # (auto) 2.32 K/uL (1.2-3.4); Mean Corpuscular Hemoglobin 30.8 pg (25-34); Mean Corpuscular Hgb Conc 33.7 g/dL (32-36); Mean Corpuscular Volume 91.5 fL (80-100); Mean Platelet Volume 10.3 fL (7.4-10.4); Monocytes # (auto) 0.81 K/uL (0.11-0.59); Monocytes % (auto) 11.5 %; Neutrophils # (auto) 3.82 K/uL (1.4-6.5); Neutrophils % (auto) 54.6 %; Platelet Count 175 K/uL (130-400); RDW Coefficient of Variation 12.3 % (11.5-14.5); RDW Standard Deviation 41.6 fL (36.4-46.3); Red Blood Count 4.12 M/uL (4.7-6.1); White Blood Count 7.02 K/uL (4.8-10.8)
[2020-06-07 05:59] LABS: BUN Creatinine Ratio 18.2 (10-20); Calcium 7.5 mg/dl (8.5-10.1); Creatinine Clr Calc Pharmacy 114.7 ml/min; Est GFR (African American) 101.4; Est GFR (Non-African American) 87.5; Potassium 4.3 mmol/L (3.5-5.1)
--- NOTE | 2020-06-07 07:05 | Hospitalist Progress Note ---
Date of Service June 07, 2020 Assessment & Plan (1) COVID-19: Patient states he was diagnosed May 16 he spent 2 weeks on isolation he was symptomatic his symptoms have resolved. His daughter and are also positive. He believes that his daughter brought Covid into the home she was babysitting for child to eventually proved to have Covid positive. 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 Jan Alberto regarding his and possibly be an OR case on 06/07 appropriate PPE and precautions will be taken (2) Right nephrolithiasis: Chris is a 55-year-old male with a past medical history of glaucoma and no other chronic medical conditions who presents with severe episodic right lowe r back pain with associated nausea and he was found to have nephrolithiasis on CT scan. Right nephrolithiasis CT abdomen/pelvis demonstrates right stone in renal pelvis of 11 mm with pelvic fullness (may be intermittently obstructing) and additional right upper pole stone measuring 5 mm with peripelvic stranding. Patient without symptoms of dysuria preceding symptoms UA pending [employer] coverage with Rocephin 2 g Flomax 0.4 mg Hydromorphone 0.5-1 mg every 3 hours scaled analgesia Tylenol 650 mg every 4 hours as needed Deferred Toradol due to admission recommendation Continue Zofran every 4 hours for nausea, adjunct Phenergan as needed Urology consulted Hemodynamically stable Received 2 L fluid in ED, continue saline 125 cc/h Glaucoma Continue home dorzolamidetimolol, latanoprost ophthalmic drops No other chronic medical conditions. Patient has had past hypertension which resolved following weight loss, if he has stones which show calcium composition would likely benefit from a thiazide. DVT prophylaxis: SCDs, deferred pharmacal prophylaxis centrally periprocedure Diet: N.p.o. Disposition: Medical/surgical CODE STATUS: Full code (3) Glaucoma: Admission and Anticipated Discharge Date Admission Date: June 06, 2020 Results & Data Results & Data ([facility]) Vital Signs (Past 12 Hours) Vital Signs Temp Pulse Resp BP Pulse Ox 06/07/20 00:35 97.9 F 74 16 117/68 95 PG Care Time/CCT Total # of Minutes Spent Total Time Spent with Patient: Total time spent is greater than 50% in coordination of care (as documented) at patient's floor/unit and/or counseling patient: Coding Diagnoses COVID-19 U07.1 Right nephrolithiasis N20.0 Glaucoma H40.9
[2020-06-07] MEDS: cefTRIAXone SODIUM 2,000 MG in DEXTROSE 5% 50 ML IV SCH (08:37)
[2020-06-07] MEDS: DORZOLAMIDE/TIMOLOL 22.3/6.8MG/ML 10 ML BTL OPB SCH (08:41)
[2020-06-07] MEDS ORDERED: TAMSULOSIN HCL 0.4 MG CAP PO SCH (09:00)
--- NOTE | 2020-06-07 10:38 | Urology Progress Note ---
Date of Service June 07, 2020 Assessment & Plan (1) Right nephrolithiasis: Attending note: 06/07/2020 at approximately 10 AM Spoke at length with patient over phone in order to try to coordinate care and answer questions more immediately wall I was not physically in the hospital taking care of clinical duties at a another facility. Multiple issues have arisen in attempt to come up with a clinical plan and management the patient. In light of patient's recent issues related to the COVID-19 virus as well as his continued positive test, increased precautions would be necessary for any intervention. Patient is currently afebrile. He is not having considerable issues related to nausea or vomiting or inability to tolerate diet. He has been ambulating and active and pain medications have been successful in controlling his pain. Today he is needing minimal pain medication. He has not had any considerable episodes of severe pain. His kidney function has remained within normal limits. Patient has somewhat been frustrated and is interested in moving forward with some sort of plan. Discussed stents at length with patient. Discussed options related to this. Patient is not having fever or considerable obstruction leading to renal injury which would be the main indications for stent placement. He is only having intermittent pain and this is been tolerated and able to be controlled with medication. Discussed side effects of stent placement including urgency frequ ency, pelvic discomfort and pain, irritation, bleeding, and other issues. Discussed may benefit which would be control of severe intermittent episodes of pain. Also discussed at length concerns related to anesthesia and surgical risk and patient in light of his recent Covid illness. Discussed increased risk of respiratory and other concerns. Discussed concerns related to intubation and anesthetic with possibility of respiratory failure and other issues. Considering these increased risk, the concerns related to the patient's status as far as contagion, and possible benefit which would be control of intermittent discomfort at this point, recommend continuing with supportive care, maximum hydration, and additional time with plans for elective management of stone in the next 1 to 2 weeks. Patient would likely be a good candidate for lithotripsy or ureteroscopy. Can coordinate this through our office with plans for optimal social distancing and minimal need for interaction. Recommend sending patient with combination of medications as as needed medications for management of issues. Would recommend opiate medication as as needed with plans for ketorolac either scheduled or as needed, tamsulosin daily, and finally recommendation to maintain good hydration as well as plans for immediate return or alerting of the on-call service if patient develops fevers chills or considerable exacerbation of issues. 55 yo M admitted for right flank pain secondary to 11 mm calculus in right renal pelvis. - Afebrile, nontoxic, creatinine and WBC WNL - Stone in right renal pelvis likely intermittently obstructing - Discussed treatment options with patient and his . Patient would like to proceed with stent placement today. - Keep NPO - Strain urine - Findings reviewed with Dr. Pineda. Given his right flank pain in the context of an obstructing 11 mm right renal stone, will proceed with OR for cystoscopy and Right stent placement. Risks and benefits to be reviewed with patient by Dr. Pineda. OR notified. Preoperative EKG on chart. COVID testing completed. Will cover with IV Ceftriaxone preoperatively. Update - COVID test returned positive. Will cancel surgery today until further evaluation. Patient is stable and no emergent need for intervention today. Continue with symptom control. Please consult our service urgently if patient develops fever >101F, intractable pain or nausea, as this may necessitate urgent surgical intervention. Thank you for the consultation and we will continue to monitor closely with primary service. Admission and Anticipated Discharge Date Admission Date: June 06, 2020 Subjective Phone call with patient in order to coordinate care. Patient is has not had a considerable episode of pain per him. He is mainly frustrated and is anxious to find a plan moving forward. No fevers or chills. No nausea or vomiting. Has been n.p.o. but had been previously tolerating diet. Has not had considerable or worsening respiratory issues or other bother. No considerable ill feelings. Most recent episode of significant or severe pain was on admission which was treated with IV medications which improved the issues drastically. Issue started approximately 3 to 4 days ago with possible previous episodes that were more minor. Has not had considerable stone issues in the past. No significant family history. Review of Systems Review of Systems: All systems reviewed & are unremarkable except as noted in HPI & below Physical Exam Physical Exam: General: Alert in no acute distress. Normal affect Respiratory: Nonlabored. No conversational dyspnea. Results & Data ([facility]) Vital Signs (Past 12 Hours) Vital Signs Temp Pulse Resp BP BP Pulse Ox 06/07/20 07:50 36.6 C 71 16 138/83 97 06/07/20 00:35 36.6 C 74 16 117/68 95 PG Care Time/CCT Total # of Minutes Spent Total Time Spent with Patient: Total time spent is greater than 50% in coordination of care (as documented) at patient's floor/unit and/or counseling patient: Coding Level of Care Code 84321 Subseq Hosp Care Lvl 3 Diagnoses Right nephrolithiasis N20.0
--- NOTE | 2020-06-07 18:10 | Discharge Summary ---
Date of Service June 07, 2020 Admission HPI Per Admitting Provider Niranjan is a 55-year-old male with a past medical history of glaucoma and no other chronic medical problems who presents with episodic back pain. Chris reports that his symptoms began 2 to 3 days ago with episodic right lower back pain which improved with Tylenol every 4 hours. He reports he was relatively pain-free yesterday until midnight last night when he developed severe 10/10 episodic achy right lower back pain with waves of pain around his flank and abdomen. Movement worsens his pain, does not note remitting factors. He does not have fevers or chills, but notes he has sweating episodes with his pain. He has been retching and had one episode of nonbloody nonbilious vomiting due to pain. He notes the last time he peed at 1:00 he is not sure if there was blood because it was dark, but he did not have any burning or pain and has not noticed any urinary changes. He denies chest pain, chest pressure, shortness of breath. He had Covid several weeks ago, as did his family, they all recovered without complication. He has not had recent fevers or cough. He does not have any personal or family history of kidney stone. He had a past history of hypertension which resolved with weight loss a year ago. Medical history: Reviewed Surgical history: Reviewed Medications: Reviewed Social: Denies tobacco, alcohol, and recreational drug use. He lives at home with his and daughter. No recent sick contacts. Had Covid several weeks ago. CODE STATUS: Full code Family history: Noncontributory, no history of kidney stones Principal Diagnosis Right renal pelvis kidney stone Possible pyelonephritis Persistent COVID-19 test positive Discharge Exam The patient appeared well Vital signs as documented. Neurologic exam is alert and oriented, no focal loss of strength or sensation Skin is without bruises or rashes Psychologically is without concerns for anxiety or depression. Discharge Data Allergies Allergy/AdvReac Type Severity Reaction Status Date / Time seasonal AdvReac Rash Uncoded 06/06/20 07:58 Consultations 06/06/20 07:34 Consult Urology Routine Procedures Performed Operation Date: 06/06/20 14:45 <No data on this case meets the specified criteria> Ordered Studies 06/06/20 03:38 CT abd pelvis wo con Urgent Hospital Course (1) COVID-19: Patient states he was diagnosed May 16 he spent 2 weeks on isolation he was symptomatic his symptoms have resolved. His daughter and are also positive. He believes that his daughter brought Covid into the home she was babysitting for child to eventually proved to have Covid positive. 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 Give the patient a slip for an outpatient Covid test and encourage him to do within 1 week to hopefully get a negative test and then be able to produce some type of ability for him to be treated in the urology office for his stone with likely lithotripsy. (2) Right nephrolithiasis: Chris is a 55-year-old male with a past medical history of glaucoma and no other chronic medical conditions who presents with severe episodic right lower back pain with associated nausea and he was found to have nephrolithiasis on CT scan. Right nephrolithiasis CT abdomen/pelvis demonstrates right stone in renal pelvis of 11 mm with pelvic fullness (may be intermittently obstructing) and additional right upper pole stone measuring 5 mm with peripelvic stranding. I personally phoned the urology office regarding this patient and request that they have telephone follow-up for close interactions with the patient as the patient had a kind of bumpy hospital stay having his procedure canceled. The office nurse did return an understanding that I had hoped that the patient to be called next week At the time of discharge asked the patient if he wished for me to call his he said no Prior to discharge I did call the patient's primary care physician and updated him on the situation We will send home on cefdinir 300 twice daily Flomax 0.4 mg Pyridium was also ordered per instructions of urology A prescription for oxycodone was also sent and told to only take this in the evening not to drive with it go to work with it and he can use ibuprofen in the interim Glaucoma Continue home dorzolamidetimolol, latanoprost ophthalmic drops No other chronic medical conditions. Patient has had past hypertension which resolved following weight loss, if he has stones which show calcium composition would likely benefit from a thiazide. CODE STATUS: Full code (3) Glaucoma: Total Time Total Time Spent Total Time Spent (In Minutes): It required greater than 30 minutes to prepare this patient for discharge Discharge Plan Discharge Items Patient Disposition: Home - Self-Care Reason For Visit: R NEPHROLITHIASIS Discharge Diagnosis: right renal pelvis stone possible upper urinary tract infection Activity: Resume your previous activity Non-emergency contact: Urologist Call non-emergency contact if: you have any medication questions and your symptoms worsen Follow-up/Referrals: Ki De DO [Physician] - (be in contact with office to coordinate) Shane García DO [Primary Care Provider] - Diet: Regular Ambulatory Orders: Covid-19 Test Request (Routine) Location: None Selected Ordered By: Yehuda Christensen Addtl Attending Provider Instructions: please have good hydration plenty of water alternate or try to use ibuprofen for pain control please be in contract with urology office to coordinate your outpt appointment, they are aware of your previous test and by their policy will they cannot see you for two weeks after a positive covid 19 test. I will give you a RX for a repeat test in a week so we can at least track to see if you are negative please be aware that opiates may cause constipation and if you do not have a bowel movement in 2 days please take an over the counter laxative If you have a fever, or pain is not controlled please return to the Ememgency room Pending Studies at Discharge: Yes Studies:: urine culture Stand-Alone Forms: My [facility], Smoking Cessation Medications and DC Order Prescriptions: New tamsulosin 0.4 mg Capsule 0.4 mg PO QAM Qty: 30 RF: 0 cefdinir 300 mg capsule 300 mg PO BID 10 Days Qty: 20 RF: 0 oxycodone 5 mg capsule 5 - 10 mg PO TID Qty: 30 RF: 0 phenazopyridine [Pyridium] 100 mg tablet 100 mg PO BID Qty: 20 RF: 0 Continued latanoprost 0.005 % drops 1 drp OPB HS RF: 0 dorzolamide-timolol 22.3-6.8 mg/mL drops 1 drp OPB BID RF: 0 Discharge Orders: Discharge Order (Routine); Ordered 06/07/20 Ordered By: Yehuda Christensen Admission Data Admit Date/Time: 06/06/20 06:06 Attending Provider: Yehuda Christensen Admit Provider: Donald Santoyo Primary Care Provider: Shane García Other Providers: Dennys Ray Other Interventions: Discharge Summary Assessment (RN) Last Done: 06/07/20 12:44 Coding Level of Care Code D/C Day Management >30 mins Diagnoses COVID-19 U07.1 Right nephrolithiasis N20.0 Glaucoma H40.9
== END 2020-06-07 13:30 | disposition home or self-care (01) | DRG 693 ==
LOC: ED 03:03 → SUATTDRO 06:06 → 3W 06:06 → 3E 09:36